=== PATIENT | female | born 1975 | race Caucasian/White ===

== ENCOUNTER 2023-04-25 13:45 | Emergency (ER) | payer OTHER, SELFPAY ==
[2023-04-25 14:02] VITALS: BP 128/93; PULSE 116; RESP 16; TEMP 36.3; O2SAT 98
--- NOTE | 2023-04-25 14:10 | ED.FEMALEGU ---
HPI - Female Genitourinary General Chief complaint: Urogenital-Female Stated complaint: STD Time Seen by Provider: 04/25/23 14:10 Source: patient Mode of arrival: ambulatory Limitations: no limitations History of Present Illness HPI Narrative: 47 yo F presents wtih c/o painful bumps to vaginal area of several months. Getting worse and friend made her come in to get them looked at. Reports hx of herpes and states not currently having outbreak. All systems reviewed and negative except as noted above. Related Data Home Medications Medication Instructions Recorded Confirmed No Home Medications 04/25/23 04/25/23 Allergies Allergy/AdvReac Type Severity Reaction Status Date / Time No Known Allergies Allergy Verified 04/25/23 14:20 Review of Systems Review of Systems: CONSTITUTIONAL: Denies fever, chills, or sweats. EYES: Denies visual changes, redness, or discharge. ENT: Denies rhinorrhea, congestion, sore throat, or otalgia. CARDIOVASCULAR: Denies chest pain, palpitations, or edema. RESPIRATORY: Denies cough or dyspnea. GASTROINTESTINAL: Denies abdominal pain, nausea, vomiting, or diarrhea. GENITOURINARY: Denies dysuria or hematuria. reports painful bumps to labia. SKIN: Denies rash or itching. MUSCULOSKELETAL: Denies back pain, joint pain, or myalgia. NEUROLOGIC: Denies headache, numbness, or weakness. PSYCHIATRIC: Denies anxiety or depression. All other systems reviewed are negative, except as documented in HPI. PMFSH Comments At time of signature, agree with nursing past medical, surgical, social and family history. There is no relevant family history pertinent to the presenting complaint. Exam Narrative: GENERAL: This is a well-nourished, well-developed patient, in no apparent distress. HEAD: normocephalic, atraumatic. EYES: PERRL. Sclera clear/white. Vision is grossly intact. EARS: External ears normal NOSE: External nose normal NECK: Neck supple, non-tender without lymphadenopathy, masses or thyromegaly. CARDIOVASCULAR: Regular rate and rhythm without murmurs, gallops, or rubs. RESPIRATORY: Clear to auscultation. Breath sounds equal bilaterally. No wheezes, rales, or rhonchi. SKIN: warm, Dry, intact with no suspicious lesions or rash, good texture and turgor. NEURO: awake, alert, and oriented to person, place and time. There were no obvious focal neurologic abnormalities. EXTREMITIES: No joint tenderness, effusion, or edema noted. UROGENITAL: lesion to L labia approx. 3 to 4cm. firm and tender on palpation, whitish colored. Course Course Level of Care: Express Care Visit Vital Signs Vital signs: Vital Signs Temperature 36.3 C L 04/25/23 14:02 Pulse Rate 116 H 04/25/23 14:02 Respiratory Rate 16 04/25/23 14:02 Blood Pressure 128/93 H 04/25/23 14:02 Pulse Oximetry 98 04/25/23 14:02 Oxygen Delivery Room Air 04/25/23 14:02 Temperature 36.3 C L 04/25/23 14:02 Pulse Rate 116 H 04/25/23 14:02 Respiratory Rate 16 04/25/23 14:02 Blood Pressure 128/93 H 04/25/23 14:02 Pulse Oximetry 98 04/25/23 14:02 Oxygen Delivery Room Air 04/25/23 14:02 reviewed MDM - Female Genitourinary MDM Narrative Medical decision making narrative: referred pt to gynecology for further evaluation. will most likely need lesion removed and sent to pathology. explained this to pt. Patient is aware of diagnosis, understands and agrees to treatment plan. Anticipatory guidance given. Patient agrees to follow-up as directed and is aware of reasons to seek care at the emergency department. Portions of this record may have been created with voice recognition software Discharge Plan Discharge Clinical Impression: Labial lesion Patient Disposition: Home, Self-Care Condition: Stable Instructions: General Patient Instructions Additional Instructions: The lesion to your labia needs to by evaluated by a bobbin fixer. Follow up at next available appointment. Foll
[2023-04-25 14:21] VITALS: BP 128/93; PULSE 116; RESP 16; TEMP 36.3; O2SAT 98
== END 2023-04-25 14:30 | disposition home or self-care (01) ==
PROVIDERS: Emergency Provider Nurse Practitioner Family
DX: N90.89 Other specified noninflammatory disorders of vulva and perineum (principal)
CPT/HCPCS: 99211; G0463